=== PATIENT | female | born 1995 | race Hispanic/Latino ===

== ENCOUNTER 2018-10-21 08:08 | Emergency (ER) | payer BC ==
[2018-10-21 08:21] VITALS: BP 130/79; PULSE 76; RESP 20; TEMP 98; O2SAT 98
[2018-10-21] MEDS ORDERED: Fluticasone Nasal 50 mcg/Spray NAS STA (08:26)
--- NOTE | 2018-10-21 08:28 | C.PDOC ---
History Of Present Illness 23 year old female presents for evaluation of sore throat and nasal congestion for 3 days. Denies fever, chills, nausea, vomiting, diarrhea, and any other associated symptoms. Time Seen by Provider: 10/21/18 08:15 Chief Complaint (Nursing): ENT Problem History Per: Patient Onset/Duration Of Symptoms: Days (x3) Current Symptoms Are (Timing): Still Present Anticoagulant/Antiplatlet Use?: No Past Medical History Reviewed: Historical Data, Nursing Documentation, Vital Signs Vital Signs: Last Vital Signs Temp 98 F 10/21/18 08:11 Pulse 76 10/21/18 08:11 Resp 20 10/21/18 08:11 BP 130/79 10/21/18 08:11 Pulse Ox 98 10/21/18 08:11 Family History: States: Unknown Family Hx - Social History Hx Alcohol Use: Yes Hx Substance Use: No - Immunization History Hx Tetanus Toxoid Vaccination: No Hx Influenza Vaccination: Yes (2018) Hx Pneumococcal Vaccination: No Review Of Systems Except As Marked, All Systems Reviewed And Found Negative. Constitutional: Negative for: Fever, Chills ENT: Positive for: Nose Congestion, Throat Pain (sore. ) Gastrointestinal: Negative for: Nausea, Vomiting, Diarrhea Physical Exam - Physical Exam Appears: Non-toxic, No Acute Distress Skin: Warm, Dry, No Rash Head: Atraumatic, Normacephalic Eye(s): bilateral: Normal Inspection Ear(s): Bilateral: Other ((+) minimal bilateral TM bulging. ) Nose: Other (nasal congestion.) Oral Mucosa: Moist Throat: Erythema, No Exudate, No Drooling Neck: Normal ROM, Supple Chest: Symmetrical, No Deformity Cardiovascular: Rhythm Regular, No Murmur Respiratory: Normal Breath Sounds, No Rales, No Rhonchi, No Wheezing Gastrointestinal/Abdominal: Normal Exam, Soft, No Tenderness Extremity: Bilateral: Atraumatic, Normal Color And Temperature, Normal ROM Neurological/Psych: Oriented x3, Normal Speech, Normal Cognition ED Course And Treatment O2 Sat by Pulse Oximetry: 98 Medical Decision Making Medical Decision Making: Initial plan: -Amoxil -Flonase -Motrin Progress/Update: Pt stable for discharge home. Prescribed Amoxicillin, Flonase, and Motrin. Advised to return to the ED if symptoms worsen. Disposition - Disposition Referrals: Cadoo,Alisha K A, MD [Family Provider] - Disposition: HOME/ ROUTINE Disposition Time: 08:26 Condition: STABLE Additional Instructions: Follow up with your PMD within 1-2 days. Return to ED if feel worse. 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 - Scribe Statement The provider has reviewed the documentation as recorded by the Scribe (Catarina Roberts) All medical record entries made by the Scribe were at my direction and personally dictated by me. I have reviewed the chart and agree that the record accurately reflects my personal performance of the history, physical exam, medical decision making, and the department course for this patient. I have also personally directed, reviewed, and agree with the discharge instructions and disposition.
== END 2018-10-21 08:40 | disposition home or self-care (01) ==
LOC: C.ER 08:08
DX: J02.9 Acute pharyngitis, unspecified (principal); J06.9 Acute upper respiratory infection, unspecified